=== PATIENT | male | born 1960 | race Caucasian/White ===

== ENCOUNTER 2016-10-15 09:15 | Emergency (ER) | payer BC ==
[~2016-10-15] VITALS: Ht 180.3 cm; Wt 119.4 kg
[2016-10-15 09:22] VITALS: BP 145/85; PULSE 59; RESP 18; TEMP 97.5; O2SAT 100
[2016-10-15 09:52] VITALS: O2SAT 99
[2016-10-15 09:56] VITALS: BP 152/83; PULSE 60; RESP 18; O2SAT 99
[2016-10-15] MEDS ORDERED: PANTOPRAZOLE SODIUM 40 MG VIAL IVP ONE (10:00)
[2016-10-15] MEDS ORDERED: SODIUM CHLORIDE 0.9% FLUSH 10 ML FLUSH IVF PRN (10:00)
[2016-10-15] MEDS ORDERED: ALFU10TA2 PO (10:07)
[2016-10-15] MEDS ORDERED: LISI40TA PO (10:07)
[2016-10-15] MEDS ORDERED: TRAM50TA PO (10:07)
[2016-10-15] MEDS ORDERED: FINA5TAB2 PO (10:07)
[2016-10-15] MEDS ORDERED: GABA600T PO (10:07)
[2016-10-15] MEDS ORDERED: DIAZ5TAB PO (10:07)
[2016-10-15] MEDS ORDERED: DULO1CAP3 PO (10:07)
[2016-10-15] MEDS ORDERED: METO100T PO (10:07)
--- NOTE | 2016-10-15 10:12 | PD ---
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 He states he has had constipation because he has chronic back pain and has been on tramadol and has a restraining a few days ago. He states that he also feels some abdominal bloating, 8 out of 10 abdominal pains in the lower abdomen. He does not know any exacerbating or alleviating factors. He denies any diarrhea, nausea, vomiting, fevers, or any other symptoms. He denies any previous history of GI bleeding. He denies any foreign body. Modifying Factors: None Associated Signs & Symptoms: Red blood in the stools Risk Factors: None PFSH Past Medical History Anxiety: Yes Depression: Yes Cardiovascular Problems: Yes (HTN) Diminished Hearing: No Hypertension: Yes Tetanus Vaccination: < 5 Years Influenza Vaccination: Yes Past Surgical History Other Surgery: Yes (ujf obstruction) Social History Alcohol Use: Yes (socially) Tobacco Use: No (former) Substance Use: No Allergies-Medications (Allergen,Severity, Reaction): Coded Allergies: No Known Allergies (Unverified , 10/15/16) Reported Meds & Prescriptions Reported Meds & Active Scripts Active Reported Tramadol (Tramadol HCl) 50 Mg Tab 50 Mg PO Q4H PRN Diazepam 5 Mg Tab 5 Mg PO TID PRN Alfuzosin ER 24 HR 10 Mg Tab 10 Mg PO HS Finasteride 5 Mg Tab 5 Mg PO HS Do not crush. Lisinopril 40 Mg Tab 40 Mg PO DAILY Duloxetine DR (Duloxetine HCl) 60 Mg Capdr 60 Mg PO DAILY Gabapentin 600 Mg Tab 600 Mg PO TID Metoprolol Tartrate 100 Mg Tab 100 Mg PO HS Review of Systems Except as stated in HPI: all other systems reviewed are Neg Physical Exam Narrative GENERAL: Well-developed elderly white male patient currently not in acute distress. Awake and oriented 3. SKIN: Focused skin assessment warm/dry. HEAD: Atraumatic. Normocephalic. EYES: Pupils equal and round. No scleral icterus. No injection or drainage. ENT: No nasal bleeding or discharge. Mucous membranes pink and moist. NECK: Trachea midline. No JVD. CARDIOVASCULAR: Regular rate and rhythm. No murmur appreciated. RESPIRATORY: No accessory muscle use. Clear to auscultation. Breath sounds equal bilaterally. GASTROINTESTINAL: Abdomen soft, mild lower abdominal diffuse tenderness without guarding or rebound, mildly distended. Hepatic and splenic margins not palpable. RECTAL EXAM: No masses or tenderness, stool is reddish and Hemoccult-positive. MUSCULOSKELETAL: No obvious deformities. No clubbing. No cyanosis. No edema. NEUROLOGICAL: Awake and alert. No obvious cranial nerve deficits. Motor grossly within normal limits. Normal speech. PSYCHIATRIC: Appropriate mood and affect; insight and judgment normal. Data Data Last Documented VS Vital Signs Date Time Temp Pulse Resp B/P Pulse Ox O2 Delivery O2 Flow Rate FiO2 10/15/16 10:52 57 18 169/83 98 Room Air 10/15/16 09:22 97.5 Orders Complete Blood Count With Diff (10/15/16 09:47) Comprehensive Metabolic Panel (10/15/16 09:47) Prothrombin Time / Inr (Pt) (10/15/16 09:47) Act Partial Throm Time (Ptt) (10/15/16 09:47) Type And Screen (10/15/16 09:47) Abdomen, Flat & Upright (10/15/16 09:47) Ecg Monitoring (10/15/16 09:47) Iv Access Insert/Monitor (10/15/16 09:47) Oximetry (10/15/16 09:47) Pantoprazole Inj (Protonix Inj) (10/15/16 10:00) Sodium Chloride 0.9% Flush (Ns Flush) (10/15/16 10:00) Labs Laboratory Tests Test 10/15/16 09:45 White Blood Count 8.7 TH/MM3 Red Blood Count 4.23 MIL/MM3 Hemoglobin 13.1 GM/DL Hematocrit 38.2 % Mean Corpuscular Volume 90.3 FL Mean Corpuscular Hemoglobin 31.0 PG Mean Corpuscular Hemoglobin 34.3 % Concent Red Cell Distribution Width 13.1 % Platelet Count 139 TH/MM3 Mean Platelet Volume 7.4 FL Neutrophils (%) (Auto) 83.2 % Lymphocytes (%) (Auto) 7.5 % Monocytes (%) (Auto) 8.9 % Eosinophils (%) (Auto) 0.2 % Basophils (%) (Auto) 0.2 % Neutrophils # (Auto) 7.2 TH/MM3 Lymphocytes # (Auto) 0.7 TH/MM3 Monocytes # (Auto) 0.8 TH/MM3 Eosinophils # (Auto) 0.0 TH/MM3 Basophils # (Auto) 0.0 TH/MM3 CBC Comment DIFF FINAL Differential Comment Prothrombin Time 10.6 SEC Prothromb Time International 1.0 RATIO Ratio Activated Partial 32.3 SEC Thromboplast Time Sodium Level 143 MEQ/L Potassium Level 4.0 MEQ/L Chloride Level 107 MEQ/L Carbon Dioxide Level 25.3 MEQ/L Anion Gap 11 MEQ/L Blood Urea Nitrogen 17 MG/DL Creatinine 1.10 MG/DL Estimat Glomerular Filtration 69 ML/MIN Rate Random Glucose 144 MG/DL Calcium Level 8.6 MG/DL Total Bilirubin 0.3 MG/DL Aspartate Amino Transf 25 U/L (AST/SGOT) Alanine Aminotransferase 29 U/L (ALT/SGPT) Alkaline Phosphatase 94 U/L Total Protein 7.1 GM/DL Albumin 3.5 GM/DL MDM Medical Decision Making Medical Screen Exam Complete: Yes Emergency Medical Condition: Yes Medical Record Reviewed: Yes Interpretation(s) Laboratory Tests Test 10/15/16 09:45 Red Blood Count 4.23 MIL/MM3 (4.50-5.90) Hematocrit 38.2 % (39.0-51.0) Platelet Count 139 TH/MM3 (150-450) Neutrophils (%) (Auto) 83.2 % (16.0-70.0) Lymphocytes (%) (Auto) 7.5 % (9.0-44.0) Monocytes (%) (Auto) 8.9 % (0.0-8.0) Lymphocytes # (Auto) 0.7 TH/MM3 (1.0-4.8) Activated Partial 32.3 SEC Thromboplast Time (24.3-30.1) Estimat Glomerular Filtration 69 ML/MIN (>89) Rate Random Glucose 144 MG/DL (74-106) Last 24 hours Impressions Abdomen X-Ray 10/15/16 0983 Signed Impressions: Service Date/Time: October 10:04 - CONCLUSION: No acute abdominal abnormality is identified. Raimundo Seymour MD Differential Diagnosis Red blood in the stoolsGI bleeding versus hemorrhoidal bleeding versus anal tear versus colitis Narrative Course Patient was given Protonix IV in the ER. Lab work did not show significant anemia. Vital signs are stable in the ER. X-ray did not show any signs of obstruction or foreign bodies. A rectal exam reveals red blood within the rectum, I do not see obvious hemorrhoids. He does have a small skin tear to the posterior part at the 6 o'clock position on the anus although there is blood about this area. At this point, the case was discussed with GI Dr. Giordano who agrees to see the patient in his clinic today or tomorrow for further evaluation of this issue, patient may need a GI scope for further evaluation. Patient needs to return to the ER if bleeding gets worse, he is having more pain, or other new symptoms occur. The plan was discussed the patient and he states understanding. HemaPrompt Point of Care Internal Pos. & Neg. Controls: Passed Fecal Specimen Occult Blood: Positive Diagnosis Primary Impression: Rectal bleeding Referrals: Rosanne Spencer MD Med/Other Pt SpecificInfo: Prescription(s) given Scripts Pantoprazole (Protonix)40 Mg Tab40 Mg PO DAILY #30 TAB Ref 0 Prov:Vitor Lockwood MD 10/15/16 Disposition: 01 DISCHARGE HOME Condition: Stable Vitor Lockwood MD Oct 15, 2016 10:12
[2016-10-15 10:14] LABS: AUTOMATED NEUTROPHIL # 7.2 TH/MM3 (1.8-7.7); BASOPHIL % 0.2 % (0.0-2.0); EOSINOPHIL % 0.2 % (0.0-4.0); HEMATOCRIT 38.2 % (39.0-51.0); HEMO FLAGS DIFF FINAL; LYMPH % 7.5 % (9.0-44.0); LYMPHOCYTE # 0.7 TH/MM3 (1.0-4.8); MEAN CELL VOLUME 90.3 FL (80.0-100.0); MEAN CORPUSCULAR HGB CONC 34.3 % (32.0-36.0); MONO % 8.9 % (0.0-8.0); NEUT % 83.2 % (16.0-70.0); PLATELET COUNT 139 TH/MM3 (150-450); RED BLOOD COUNT 4.23 MIL/MM3 (4.50-5.90); RED CELL DISTRIBUTION WIDTH 13.1 % (11.6-17.2); WHITE BLOOD COUNT 8.7 TH/MM3 (4.0-11.0)
[2016-10-15 10:22] LABS: CHLORIDE 107 MEQ/L (98-107); SODIUM (NA) 143 MEQ/L (136-145)
[2016-10-15 10:25] LABS: ANION GAP 11 MEQ/L (5-15); APTT (PATIENT) 32.3 SEC (24.3-30.1); BICARBONATE 25.3 MEQ/L (21.0-32.0); BLOOD UREA NITROGEN 17 MG/DL (7-18); PROTHROMBIN TIME - PATIENT 10.6 SEC (9.8-11.6)
[2016-10-15 10:28] LABS: ALT (GPT) 29 U/L (12-78); AST (GOT) 25 U/L (15-37); GLOMERULAR FILTRATION RATE 69 ML/MIN (>89)
[2016-10-15 10:29] LABS: TOTAL BILIRUBIN ADULT 0.3 MG/DL (0.2-1.0)
[2016-10-15 10:43] LABS: ALKALINE PHOSPHATASE 94 U/L (45-117)
--- NOTE | 2016-10-15 10:44 | RADHPO ---
EXAM DATE/TIME: 10/15/2016 10:04 [facility] COMPARISON: No previous studies available for comparison. INDICATIONS : Low abdominal pain. Constipation x 3 days, bloody diarrhea started this am. MEDICAL HISTORY : Hypertension. SURGICAL HISTORY : None. ENCOUNTER: Initial ACUITY: 3 days PAIN SCORE: 8/10 LOCATION: lower abdomen FINDINGS: Supine and upright views of the abdomen demonstrates air within small and large bowel and a nonobstru ctive pattern. There is mild distended small bowel in the left midabdomen. The upright image demonstr ates no free intraperitoneal air or significant air-fluid level. No concerning calcifications are see n. There are degenerative changes throughout the lumbar spine and there has been posterior spinal fix ation with bilateral pedicular screws at L4-S1. The visualized lung bases are clear. CONCLUSION: No acute abdominal abnormality is identified. Raimundo Seymour MD on October 15, 2016 at 10:42 Board Certified Radiologist. This report was verified electronically.
[2016-10-15 10:52] VITALS: BP 169/83; PULSE 57; RESP 18; O2SAT 98
[2016-10-15] MEDS ORDERED: PROT40TA PO (11:05)
== END 2016-10-15 11:35 | disposition home or self-care (01) ==
LOC: PHED 09:15
DX: K62.5 Hemorrhage of anus and rectum (principal)
CPT/HCPCS: 74020; 80053; 85025; 85610; 85730; 86850; 86900; 86901; 96374; C9113

== ENCOUNTER 2016-10-16 14:47 | Inpatient (IN) | payer BC ==
[~2016-10-16] VITALS: Ht 180.3 cm; Wt 113.0 kg
[~2016-10-16 14:47] MED LIST: ALFU10TA2 PO; DIAZ5TAB PO; DULO1CAP3 PO; FINA5TAB2 PO; GABA600T PO; LISI40TA PO; METO100T PO; PROT40TA PO; TRAM50TA PO
[2016-10-16 14:49] VITALS: BP 166/85; PULSE 70; RESP 24; TEMP 97.6; O2SAT 100
--- NOTE | 2016-10-16 14:54 | PD ---
Physical Exam Date Seen by Provider: Oct 16, 2016 Time Seen by Provider: 14:53 Narrative 56 year old male presents to the emergency department for evaluation of bright red rectal bleeding for 2 days. He states he was seen at [facility] and was referred to outpatient gastroenterology. He follow up there and was referred to the emergency department. He reports dizziness and abdominal pain as well. Vital signs reviewed. Patient awaiting bed placement. Data Data Last Documented VS Vital Signs Date Time Temp Pulse Resp B/P Pulse Ox O2 Delivery O2 Flow Rate FiO2 10/16/16 14:49 97.6 70 24 166/85 100 Room Air [facility] Supervised Visit with TYE: Shireen Contreras Oct 16, 2016 14:54
[2016-10-16] MEDS ORDERED: SODIUM CHLOR 0.9% 1000 ML INJ 1,000 ML IV SCH (16:40)
--- NOTE | 2016-10-16 16:42 | PD ---
HPI Chief Complaint: GI Complaint Time Seen by Provider: 16:42 Travel History International Travel<30 days: No Contact w/Intl Traveler<30days: No Traveled to known affect area: No History of Present Illness HPI 56-year-old male with a history of hypertension, BPH, anxiety and depression presents to the emergency department for evaluation of rectal bleeding for 2 days. The patient states that he was suffering from constipation for 4 days and had not had any bowel movements until last night. States that when he woke up yesterday morning he felt as though he needed to have a bowel movement so he sat on the toilet but passed only bright red blood. States that he had multiple episodes of passing bright red blood approximately one to 2 cups at a time. States that last night he did finally pass brown stool and did notice bright red blood on the toilet paper afterwards. States that this morning he had a few more bowel movements that were brown without blood. But throughout the day today he has still had multiple episodes of passing bright red blood per rectum without any stool. He also complains of lower abdominal cramping intermittently since yesterday. States that today he is feeling weak and lightheaded. States that he saw the wholesale account manager Dr. Spencer today and was told to come to the ED. Does not have a PCP. No other complaints. PFSH Past Medical History Anxiety: Yes Depression: Yes Cardiovascular Problems: Yes (HTN) Diminished Hearing: No Hypertension: Yes Past Surgical History Other Surgery: Yes (ujf obstruction) Social History Alcohol Use: Yes (socially) Tobacco Use: No (former) Substance Use: No Allergies-Medications (Allergen,Severity, Reaction): Coded Allergies: No Known Allergies (Unverified , 10/16/16) Reported Meds & Prescriptions Reported Meds & Active Scripts Active Protonix (Pantoprazole Sodium) 40 Mg Tab 40 Mg PO DAILY Reported Tramadol (Tramadol HCl) 50 Mg Tab 50 Mg PO Q4H PRN Diazepam 5 Mg Tab 5 Mg PO TID PRN Alfuzosin ER 24 HR 10 Mg Tab 10 Mg PO HS Finasteride 5 Mg Tab 5 Mg PO HS Do not crush. Lisinopril 40 Mg Tab 40 Mg PO DAILY Duloxetine DR (Duloxetine HCl) 60 Mg Capdr 60 Mg PO DAILY Gabapentin 600 Mg Tab 600 Mg PO TID Metoprolol Tartrate 100 Mg Tab 100 Mg PO HS Review of Systems Except as stated in HPI: all other systems reviewed are Neg Physical Exam Narrative GENERAL: Well-nourished and well-developed pleasant male patient in no acute distress who is nontoxic appearing. SKIN: Warm and dry. HEAD: Normocephalic and atraumatic. EYES: No injection, drainage, or hyphema noted. PERRLA. EOMI. ENT: No nasal drainage noted. Oropharynx is clear. NECK: Supple and the trachea is midline. CARDIOVASCULAR: Regular rate and rhythm. RESPIRATORY: Breath sounds are equal bilaterally with no accessory muscle use, wheezing, rhonchi, or crackles. GASTROINTESTINAL: Tenderness to palpation of left lower quadrant, mid lower and right lower abdomen. No rebound tenderness or guarding. Abdomen is soft and nondistended. RECTAL EXAM: No masses or tenderness. No stool in the rectal vault. Performed in the presence of Nelida LANGSTON. MUSCULOSKELETAL: No obvious deformities, swelling, cyanosis, or ecchymosis is present throughout the upper and lower extremities. Patient has full range of motion without any signs of neurovascular compromise. NEUROLOGICAL: Awake, alert, and oriented. Normal speech and gait. Cranial nerves are grossly intact. Data Data Last Documented VS Vital Signs Date Time Temp Pulse Resp B/P Pulse Ox O2 Delivery O2 Flow Rate FiO2 10/16/16 17:07 72 18 170/79 10/16/16 17:02 99 Room Air 10/16/16 14:49 97.6 Orders Complete Blood Count With Diff (10/16/16 16:40) Comprehensive Metabolic Panel (10/16/16 16:40) Lipase (10/16/16 16:40) Prothrombin Time / Inr (Pt) (10/16/16 16:40) Act Partial Throm Time (Ptt) (10/16/16 16:40) Ecg Monitoring (10/16/16 16:40) Iv Access Insert/Monitor (10/16/16 16:40) Orthostatic Vital Signs (10/16/16 16:40) Oximetry (10/16/16 16:40) Ondansetron Inj (Zofran Inj) (10/16/16 16:45) Sodium Chlor 0.9% 1000 Ml Inj (Ns 1000 M (10/16/16 16:40) Sodium Chloride 0.9% Flush (Ns Flush) (10/16/16 16:45) Pantoprazole Inj (Protonix Inj) (10/16/16 16:45) Pantoprazole Inj (Protonix Inj) (10/16/16 16:45) Morphine Inj (Morphine Inj) (10/16/16 16:45) Ct Abd/Pel W Iv Contrast(Rout) (10/16/16 16:40) Iohexol 350 Inj (Omnipaque 350 Inj) (10/16/16 18:11) Ciprofloxacin 400 Mg Premix (Cipro 400 M (10/16/16 19:30) Metronidazole 500 Mg Inj (Flagyl 500 Mg (10/16/16 19:30) Consult Gastroenterology (10/16/16 ) Admit Order (Ed Use Only) (10/16/16 19:28) Labs Laboratory Tests Test 10/16/16 17:15 White Blood Count 7.6 TH/MM3 Red Blood Count 3.98 MIL/MM3 Hemoglobin 12.3 GM/DL Hematocrit 36.5 % Mean Corpuscular Volume 91.5 FL Mean Corpuscular Hemoglobin 31.0 PG Mean Corpuscular Hemoglobin 33.8 % Concent Red Cell Distribution Width 13.7 % Platelet Count 127 TH/MM3 Mean Platelet Volume 7.9 FL Neutrophils (%) (Auto) 73.1 % Lymphocytes (%) (Auto) 17.5 % Monocytes (%) (Auto) 8.8 % Eosinophils (%) (Auto) 0.5 % Basophils (%) (Auto) 0.1 % Neutrophils # (Auto) 5.5 TH/MM3 Lymphocytes # (Auto) 1.3 TH/MM3 Monocytes # (Auto) 0.7 TH/MM3 Eosinophils # (Auto) 0.0 TH/MM3 Basophils # (Auto) 0.0 TH/MM3 CBC Comment DIFF FINAL Differential Comment Prothrombin Time 11.0 SEC Prothromb Time International 1.0 RATIO Ratio Activated Partial 32.4 SEC Thromboplast Time Sodium Level 141 MEQ/L Potassium Level 4.0 MEQ/L Chloride Level 105 MEQ/L Carbon Dioxide Level 28.5 MEQ/L Anion Gap 8 MEQ/L Blood Urea Nitrogen 13 MG/DL Creatinine 1.09 MG/DL Estimat Glomerular Filtration 70 ML/MIN Rate Random Glucose 104 MG/DL Calcium Level 8.3 MG/DL Total Bilirubin 0.5 MG/DL Aspartate Amino Transf 15 U/L (AST/SGOT) Alanine Aminotransferase 26 U/L (ALT/SGPT) Alkaline Phosphatase 69 U/L Total Protein 6.8 GM/DL Albumin 3.4 GM/DL Lipase 92 U/L [facility] Medical Decision Making Medical Screen Exam Complete: Yes Emergency Medical Condition: Yes Differential Diagnosis GI bleed versus symptomatic anemia versus dehydration versus loculated abnormality versus constipation Narrative Course 56-year-old male presents to the emergency department for evaluation of rectal bleeding for 2 days with lightheadedness, weakness and abdominal pain. Patient is afebrile, vital signs are stable. He does have lower abdominal tenderness to palpation but no peritoneal signs. Rectal examination is performed however there is no stool in the rectal vault. I did review the EMR which shows he was seen here yesterday and had a positive stool guaiac and was discharged to follow -up with a wholesale account manager as an outpatient. He did see Dr. Spencer today in office, there is documentation that was sent with the patient from the visit that shows he is requesting patient have repeat labs, EGD and colonoscopy and a CT of the abdomen and pelvis. Patient is administered IV fluids, pain medication, Protonix bolus and drip. CBC shows anemia with a hemoglobin of 12.3, hematocrit 36.5. This is decreased from yesterday when his hemoglobin was 13.1 and hematocrit 38.2. CMP is unremarkable. Coags are unremarkable. CT of the abdomen and pelvis shows questionable distal colonic wall thickening which may reflect colitis. Small period splenic fluid collection of undetermined origin and significance. Stool guaiac tested from stool sample is positive. Labs show a slight decrease in hemoglobin and imaging shows possible colitis. Patient is administered Cipro and Flagyl IV and will be admitted to medicine service with gastroenterology consultation. I discussed the case with my attending physician Dr. Rendon who is aware of the patients history, physical examination findings, and treatment plan. HemaPrompt Point of Care Internal Pos. & Neg. Controls: Passed Fecal Specimen Occult Blood: Positive Physician Communication Physician Communication I spoke with Dr. Choudhury [facility] who agrees to admit the patient to her service. Diagnosis Primary Impression: GI bleed Qualified Code: K92.2 - Gastrointestinal hemorrhage, unspecified gastrointestinal hemorrhage type Additional Impression: Colitis Admitting Information Admitting Physician Requests: Observation Alejandra Cali Oct 16, 2016 16:42
[2016-10-16] MEDS ORDERED: SODIUM CHLORIDE 0.9% FLUSH 10 ML FLUSH IVF PRN (16:45)
[2016-10-16] MEDS ORDERED: MORPHINE SULFATE 4 MG/ML INJ IV PUSH ONE (16:45)
[2016-10-16] MEDS ORDERED: ONDANSETRON HCL 4 MG/2 ML VIAL IVP ONE (16:45)
[2016-10-16] MEDS ORDERED: PANTOPRAZOLE INJ 80 MG in SODIUM CHLORIDE 0.9% INJ 35 ML IV ONE (16:45)
[2016-10-16 17:02] VITALS: BP 153/104; RESP 18; O2SAT 99
[2016-10-16 17:07] VITALS: BP 170/79; RESP 18
[2016-10-16 17:28] LABS: AUTOMATED NEUTROPHIL # 5.5 TH/MM3 (1.8-7.7); BASOPHIL % 0.1 % (0.0-2.0); EOSINOPHIL % 0.5 % (0.0-4.0); HEMATOCRIT 36.5 % (39.0-51.0); HEMO FLAGS DIFF FINAL; LYMPH % 17.5 % (9.0-44.0); LYMPHOCYTE # 1.3 TH/MM3 (1.0-4.8); MEAN CELL VOLUME 91.5 FL (80.0-100.0); MEAN CORPUSCULAR HGB CONC 33.8 % (32.0-36.0); MONO % 8.8 % (0.0-8.0); NEUT % 73.1 % (16.0-70.0); PLATELET COUNT 127 TH/MM3 (150-450); RED BLOOD COUNT 3.98 MIL/MM3 (4.50-5.90); RED CELL DISTRIBUTION WIDTH 13.7 % (11.6-17.2); WHITE BLOOD COUNT 7.6 TH/MM3 (4.0-11.0)
[2016-10-16 17:39] LABS: APTT (PATIENT) 32.4 SEC (24.3-30.1)
[2016-10-16] MEDS: PANTOPRAZOLE INJ 80 MG in SODIUM CHLORIDE 0.9% INJ 100 ML IV SCH (17:44)
[2016-10-16 17:51] LABS: ALT (GPT) 26 U/L (12-78); ANION GAP 8 MEQ/L (5-15); AST (GOT) 15 U/L (15-37); BICARBONATE 28.5 MEQ/L (21.0-32.0); BLOOD UREA NITROGEN 13 MG/DL (7-18); CHLORIDE 105 MEQ/L (98-107); GLOMERULAR FILTRATION RATE 70 ML/MIN (>89); SODIUM (NA) 141 MEQ/L (136-145)
[2016-10-16 17:53] LABS: ALKALINE PHOSPHATASE 69 U/L (45-117); TOTAL BILIRUBIN ADULT 0.5 MG/DL (0.2-1.0)
[2016-10-16] MEDS ORDERED: IOHEXOL 350 MG/ML 10 ML VIAL (for RAD DIAG) IV ONE (18:11)
--- NOTE | 2016-10-16 19:15 | RADRPT ---
EXAM DATE/TIME: 10/16/2016 18:02 [facility] COMPARISON: No previous studies available for comparison. INDICATIONS : Rectal bleeding with hypogastric abdominal pain for 2 days. IV CONTRAST: 92 cc Omnipaque 350 (iohexol) IV ORAL CONTRAST: No oral contrast ingested. RADIATION DOSE: 16.98 CTDIvol (mGy) MEDICAL HISTORY : Hypertension. SURGICAL HISTORY : Fusion, lumbar. ENCOUNTER: Initial ACUITY: 2 days PAIN SCALE: 6/10 LOCATION: Hypogastric abdomen/pelvis TECHNIQUE: Volumetric scanning of the abdomen and pelvis was performed. Using automated exposure control and ad justment of the mA and/or kV according to patient size, radiation dose was kept as low as reasonably achievable to obtain optimal diagnostic quality images. FINDINGS: LOWER LUNGS: The visualized lower lungs are clear. LIVER: Homogeneous density without lesion. There is no dilation of the biliary tree. No calcified gallston es. SPLEEN: There is a crescentic low density collection in the posterior subdiaphragmatic region adjacent to the spleen. The significance of this is undetermined. There is no evidence of splenic mass. PANCREAS: Within normal limits. KIDNEYS: Normal in size and shape. There is no mass, stone or hydronephrosis. ADRENAL GLANDS: Within normal limits. VASCULAR: There is no aortic aneurysm. BOWEL/MESENTERY: I question some distal colonic wall thickening diffusely in the sigmoid region. There is no evidence of obstruction. No extraluminal gas or fluid is appreciated. ABDOMINAL WALL: Within normal limits. RETROPERITONEUM: There is no lymphadenopathy. BLADDER: No wall thickening or mass. REPRODUCTIVE: Within normal limits. INGUINAL: There is no lymphadenopathy or hernia. MUSCULOSKELETAL: Within normal limits for patient age. CONCLUSION: Question distal colonic wall thickening which may reflect colitis. Small perisplenic fluid collection of undetermined origin and significance. Raimundo Ghotra MD on October 16, 2016 at 19:07 Board Certified Radiologist. This report was verified electronically.
[2016-10-16] MEDS ORDERED: CIPROFLOXACIN 400 MG PREMIX 200 ML IV ONE (19:30)
[2016-10-16] MEDS ORDERED: metroNIDAZOLE 500 MG INJ 100 ML IV ONE (19:30)
[2016-10-16 19:37] VITALS: BP 164/95; PULSE 62; RESP 18; O2SAT 96
--- NOTE | 2016-10-16 19:43 | HHI.HP ---
[facility] No Primary Care Physician Admission Diagnosis GI Bleed, Colitis Diagnoses: (1) Colitis Diagnosis: Principal (2) GI bleed Diagnosis: Principal (3) Dehydration Diagnosis: Principal (4) HTN (hypertension) Diagnosis: Principal Travel History International Travel<30 Days: No Contact w/Intl Traveler <30 Da: No Traveled to Known Affected Are: No History of Present Illness This is a 56-year-old male with a PMH of Anxiety, Depression, BPH and HTN who presented to the ER with complaints of rectal bleeding x2 days. Denies nausea, vomiting or diarrhea. Reports occasional cramping abdominal pain. Seen in ER on 10/15/16 for similar symptoms, labs essentially unremarkable, Abd X-ray negative, Dr. Spencer contacted by ER physician, recommended follow up as outpatient in office for further eval. Today w/ multiple episodes of BRBPR, seen in office by Dr. Spencer and referred to ER for CT and plan for EGD/ Colonoscopy. On arrival, BP 166/85, HR 70, O2 sat 100% on RA, Afebrile. Hgb 12.3, previously 13.1 on 10/15/16. Platelets 127, previously 139 on 10/15/16. Chemistry essentially unremarkable except for GFR 70. INR 1.0. CT Abdomen/ Pelvis w/ question distal colonic wall thickening which may reflect colitis, small perisplenic fluid of undetermined significance. S/p Cipro/Flagyl in ER. Started on Protonix gtt Review of Systems Except as stated in HPI: all other systems reviewed are Neg ROS: 14 point review of systems otherwise negative. Past Family Social History Past Medical History PMH: Anxiety, Depression, BPH and HTN Past Surgical History PAST SURGICAL HISTORY: UVJ Stent Allergies: Coded Allergies: No Known Allergies (Unverified , 10/16/16) Family History PAST FAMILY HISTORY: Reviewed. No h/o DM or CAD Social History PAST SOCIAL HISTORY: Occasional alcohol. Negative for tobacco or drugs. Physical Exam Vital Signs Vital Signs Date Time Temp Pulse Resp B/P Pulse Ox O2 Delivery O2 Flow Rate FiO2 10/16/16 19:37 62 18 164/95 96 Room Air 10/16/16 17:07 72 18 170/79 10/16/16 17:02 18 10/16/16 17:02 99 Room Air 10/16/16 17:02 67 18 153/104 10/16/16 14:49 97.6 70 24 166/85 100 Room Air Physical Exam PE: GENERAL: Middle-aged white male in no acute distress. HEENT: PERRLA, EOMI. No scleral icterus or conjunctival pallor. No lid lag or facial droop. CARDIOVASCULAR: Regular rate and rhythm. No obvious murmurs to auscultation. No chest tenderness to palpation. RESPIRATORY: No obvious rhonchi or wheezing. Clear to auscultation. Breath sounds equal bilaterally. GASTROINTESTINAL: Abdomen soft, mild generalized tenderness to palpation, nondistended. BS normal. MUSCULOSKELETAL: Extremities without clubbing, cyanosis, or edema. No obvious deformities. NEUROLOGICAL: Awake, alert and oriented x4. No focal neurologic deficits. Moving both upper and lower extremities spontaneously. Laboratory Laboratory Tests Test 10/16/16 17:15 White Blood Count 7.6 Red Blood Count 3.98 Hemoglobin 12.3 Hematocrit 36.5 Mean Corpuscular Volume 91.5 Mean Corpuscular Hemoglobin 31.0 Mean Corpuscular Hemoglobin 33.8 Concent Red Cell Distribution Width 13.7 Platelet Count 127 Mean Platelet Volume 7.9 Neutrophils (%) (Auto) 73.1 Lymphocytes (%) (Auto) 17.5 Monocytes (%) (Auto) 8.8 Eosinophils (%) (Auto) 0.5 Basophils (%) (Auto) 0.1 Neutrophils # (Auto) 5.5 Lymphocytes # (Auto) 1.3 Monocytes # (Auto) 0.7 Eosinophils # (Auto) 0.0 Basophils # (Auto) 0.0 CBC Comment DIFF FINAL Differential Comment Prothrombin Time 11.0 Prothromb Time International 1.0 Ratio Activated Partial 32.4 Thromboplast Time Sodium Level 141 Potassium Level 4.0 Chloride Level 105 Carbon Dioxide Level 28.5 Anion Gap 8 Blood Urea Nitrogen 13 Creatinine 1.09 Estimat Glomerular Filtration 70 Rate Random Glucose 104 Calcium Level 8.3 Total Bilirubin 0.5 Aspartate Amino Transf 15 (AST/SGOT) Alanine Aminotransferase 26 (ALT/SGPT) Alkaline Phosphatase 69 Total Protein 6.8 Albumin 3.4 Lipase 92 Result Diagram: 10/16/16 1715 10/16/16 171 Assessment and Plan Problem List: (1) GI bleed ICD Code: K92.2 Status: Acute (2) Colitis ICD Code: K52.9 Status: Acute (3) Dehydration ICD Code: E86.0 Status: Acute (4) HTN (hypertension) ICD Code: I10 Status: Acute Assessment and Plan A/P: 1. GI Bleed: Lower GI Bleed, +rectal bleeding x2 days, seen in ER on 10/15/16 for similar, multiple episodes of BRBPR today, seen in office by Dr. Spencer and referred to ER for CT w/ plan for EGD/Colonoscopy. CT Abd/Pelvis w/ colitis , images reviewed by me. Dr. Spencer consulted. Started on Protonix gtt 2. Colitis: CT Abd/Pelvis w/ question distal colonic wall thickening which may reflect colitis, small. Splenic fluid collection undetermined significance , images reviewed by me. S/p Cipro/Flagyl in ER. Continue IV Abx, IVF for hydration. 3. Dehydration: GFR 70, IVF for hydration, repeat labs in am. 4. HTN: BP 150-160's, likely compounded by abdominal discomfort, resume home medications, monitor BP. 5. DVT Prophylaxis: SCD/Teds. 6. Social work for d/c planning as needed. 7. Case discussed w/ ER physician at length. Physician Certification 2 Midnight Certification Type: Admission for Inpatient Services Order for Inpatient Services The services are ordered in accordance with Medicare regulations or non- Medicare payer requirements, as applicable. In the case of services not specified as inpatient-only, they are appropriately provided as inpatient services in accordance with the 2-midnight benchmark. Estimated LOS (days): 2 days is the estimated time the patient will need to remain in the hospital, assuming treatment plan goals are met and no additional complications. Post-Hospital Plan: Not yet determined Problem Qualifiers (1) GI bleed: Qualified Code: K92.2 - Gastrointestinal hemorrhage, unspecified gastrointestinal hemorrhage type Susan Choudhury MD Oct 16, 2016 19:43
[2016-10-16] MEDS ORDERED: SODIUM CHLORIDE 0.9% FLUSH 10 ML FLUSH IV FLUSH PRN (19:45)
[2016-10-16] MEDS ORDERED: ACETAMINOPHEN 325 MG TAB PO PRN (19:45)
[2016-10-16] MEDS ORDERED: BISACODYL 10 MG SUPP RECTAL PRN (19:45)
[2016-10-16] MEDS ORDERED: ONDANSETRON HCL 4 MG/2 ML VIAL IVP PRN (19:45)
[2016-10-16] MEDS: SODIUM CHLOR 0.9% 1000 ML INJ 1,000 ML IV SCH (20:10)
[2016-10-16] MEDS: MORPHINE SULFATE 4 MG/ML INJ IV PRN (20:12)
[2016-10-16] MEDS: SODIUM CHLORIDE 0.9% FLUSH 10 ML FLUSH IV FLUSH SCH (21:00)
[2016-10-16 22:40] VITALS: BP 113/70; PULSE 78; RESP 20; TEMP 97.4; O2SAT 98
[2016-10-16] MEDS: METOPROLOL TARTRATE 100 MG TAB PO SCH (22:42)
[2016-10-16] MEDS: TAMSULOSIN HCL 0.4 MG CAP PO SCH (22:42)
[2016-10-16] MEDS: FINASTERIDE 5 MG TAB PO SCH (22:42)
[2016-10-17] MEDS: DIAZEPAM 5 MG TAB PO PRN ×3 (00:33→17:17)
[2016-10-17] MEDS: ACETAMINOPHEN/HYDROcodone 325 MG/5 MG TAB PO PRN ×5 (00:33→21:42)
[2016-10-17] MEDS: PANTOPRAZOLE INJ 80 MG in SODIUM CHLORIDE 0.9% INJ 100 ML IV SCH ×3 (03:06→21:43)
[2016-10-17] MEDS: metroNIDAZOLE 500 MG INJ 100 ML IV SCH ×3 (03:09→17:20)
[2016-10-17 04:29] VITALS: BP 105/55; PULSE 60; RESP 18; TEMP 97.7; O2SAT 96
[2016-10-17] MEDS: SODIUM CHLOR 0.9% 1000 ML INJ 1,000 ML IV SCH ×2 (05:46→15:06)
[2016-10-17] MEDS: CIPROFLOXACIN 400 MG PREMIX 200 ML IV SCH ×2 (05:56→17:17)
[2016-10-17 05:59] LABS: AUTOMATED NEUTROPHIL # 3.5 TH/MM3 (1.8-7.7); BASOPHIL % 0.4 % (0.0-2.0); EOSINOPHIL # 0.1 TH/MM3 (0-0.4); HEMO FLAGS DIFF FINAL; LYMPHOCYTE # 1.8 TH/MM3 (1.0-4.8); MEAN CELL VOLUME 91.2 FL (80.0-100.0); MEAN CORPUSCULAR HEMOGLOBIN 31.8 PG (27.0-34.0); MEAN CORPUSCULAR HGB CONC 34.9 % (32.0-36.0); MONO % 10.5 % (0.0-8.0); NEUT % 58.1 % (16.0-70.0); PLATELET COUNT 110 TH/MM3 (150-450); RED CELL DISTRIBUTION WIDTH 14.1 % (11.6-17.2)
[2016-10-17 06:38] LABS: ALKALINE PHOSPHATASE 56 U/L (45-117); ALT (GPT) 19 U/L (12-78); ANION GAP 8 MEQ/L (5-15); AST (GOT) 13 U/L (15-37); BICARBONATE 25.1 MEQ/L (21.0-32.0); BLOOD UREA NITROGEN 12 MG/DL (7-18); CHLORIDE 108 MEQ/L (98-107); GLOMERULAR FILTRATION RATE 81 ML/MIN (>89); POTASSIUM 3.6 MEQ/L (3.5-5.1); SODIUM (NA) 141 MEQ/L (136-145); TOTAL BILIRUBIN ADULT 0.4 MG/DL (0.2-1.0)
[2016-10-17 08:00] VITALS: BP 112/67; PULSE 51; RESP 16; TEMP 97; O2SAT 98
[2016-10-17] MEDS: GABAPENTIN 300 MG CAP PO SCH ×3 (08:17→17:17)
[2016-10-17] MEDS: SODIUM CHLORIDE 0.9% FLUSH 10 ML FLUSH IV FLUSH SCH ×2 (08:17→21:00)
[2016-10-17] MEDS: DULoxetine HCl DR 60 MG CAP PO SCH (08:17)
--- NOTE | 2016-10-17 11:01 | PD.CONS ---
HPI History of Present Illness This is a 56-year-old male with a PMH of Anxiety, Depression, BPH and HTN who presented to the ER with complaints of rectal bleeding that started on Wednesday associated with severe stabbing constant lower abdomen pain. Patient was seen in ER on 10/15/16 for similar symptoms, labs essentially unremarkable, Abd X-ray negative at the time, Dr. Spencer contacted by ER physician, recommended follow up as outpatient in office for further eval. He was seen in our office by Dr. Spencer and referred to ER for CT and plan for EGD/Colonoscopy due to feeling dizzy and having multiple episodes of BRBPR. The bleeding fills the toilet, with mucus, he states he was having an episode approx. every 30 -45 minutes independent of BM. States he had few BMs but they are normal in color with out bleeding. Denies nausea, vomiting, diarrhea, fever, or chills. Denies previous history of this, denies recent abx, sick contact or travel. Aleksander family hx of IBD. Denies NSAIDs. He had a colonoscopy 7 years ago per patient and that was normal. The pain is much better today. He had a rectal bleed this morning. CT Abdomen/Pelvis w/ question distal colonic wall thickening which may reflect colitis, small perisplenic fluid of undetermined significance. Hgb 10.8, previously 13.1 on 10/15/16. S/p Cipro/Flagyl in ER. Started on Protonix gtt PFSH Past Medical History PMH: Anxiety, Depression, BPH and HTN Past Surgical History PAST SURGICAL HISTORY: UVJ Stent Coded Allergies: No Known Allergies (Unverified , 10/16/16) Medications Current Medications Medications (Trade) Dose Ordered Sig/Kiara Route Start Time Stop Time Status Last Admin Sodium Chloride 2 ml 2 ml UNSCH PRN IVF 10/16/16 16:45 Pantoprazole Sodium 80 mg/ Sodium Chloride 100 ml @ 10 mls/hr Q10H IV 10/16/16 16:45 10/17/16 03:06 Ciprofloxacin/ Dextrose 200 ml @ 200 mls/hr Q12H IV 10/17/16 07:00 10/17/16 05:56 Metronidazole 100 ml @ 100 mls/hr Q8H IV 10/17/16 03:00 10/17/16 03:09 (NS 1000 ml Inj) 1,000 ml @ 100 mls/hr Q10H IV 10/16/16 19:37 10/17/16 05:46 (NS Flush) 2 ml UNSCH PRN IV FLUSH 10/16/16 19:45 (NS Flush) 2 ml BID IV FLUSH 10/16/16 21:00 10/17/16 08:17 (Zofran Inj) 4 mg Q6H PRN IVP 10/16/16 19:45 (Dulcolax Supp) 10 mg DAILY PRN RECTAL 10/16/16 19:45 (Tylenol) 650 mg Q6H PRN PO 10/16/16 19:45 ([place] 5-325 Mg) 1 tab Q4H PRN PO 10/16/16 19:45 10/17/16 08:17 (Morphine Inj) 2 mg Q3H PRN IV 10/16/16 19:45 10/16/16 20:12 (Valium) 5 mg TID PRN PO 10/16/16 19:45 10/17/16 08:17 (Cymbalta Dr) 60 mg DAILY PO 10/17/16 09:00 10/17/16 08:17 (Proscar) 5 mg HS PO 10/16/16 21:00 10/16/16 22:42 (Neurontin) 600 mg TID PO 10/17/16 09:00 10/17/16 08:17 (Lopressor) 100 mg HS PO 10/16/16 21:00 10/16/16 22:42 (Flomax) 0.4 mg HS PO 10/16/16 21:00 10/16/16 22:42 Family History No family hx of colon cancer or IBD Social History PAST SOCIAL HISTORY: Occasional alcohol. Negative for tobacco or drugs. Review of Systems Constitutional: COMPLAINS OF: Fatigue, DENIES: Fever, Chills Endocrine: DENIES: Polyuria Eyes: DENIES: Double Vision Ears, nose, mouth, throat: DENIES: Hoarseness Respiratory: DENIES: Shortness of breath Cardiovascular: DENIES: Lower Extremity Edema Gastrointestinal: COMPLAINS OF: Abdominal pain, Bloody stools, DENIES: Black stools, Constipation, Diarrhea, Nausea, Vomiting, Difficulty Swallowing, Anorexia, Odynophagia, Swelling of Abdomen, Heartburn, Hematemesis Genitourinary: DENIES: Hematuria Musculoskeletal: COMPLAINS OF: Back pain Integumentary: DENIES: Jaundice Hematologic/lymphatic: DENIES: Bruising Immunologic/allergic: DENIES: Eczema Neurologic: DENIES: Abnormal gait Psychiatric: COMPLAINS OF: Anxiety GI Exam Vitals I&O Vital Signs Date Time Temp Pulse Resp B/P Pulse Ox O2 Delivery O2 Flow Rate FiO2 10/17/16 08:00 97.0 51 16 112/67 98 10/17/16 04:29 97.7 60 18 105/55 96 10/17/16 01:55 18 10/16/16 22:40 97.4 78 20 113/70 98 10/16/16 21:23 18 10/16/16 21:15 18 10/16/16 19:37 62 18 164/95 96 Room Air 10/16/16 17:07 72 18 170/79 10/16/16 17:02 18 10/16/16 17:02 99 Room Air 10/16/16 17:02 67 18 153/104 10/16/16 14:49 97.6 70 24 166/85 100 Room Air I/O 10/16/16 10/16/16 10/16/16 10/17/16 10/17/16 10/17/16 07:00 15:00 23:00 07:00 15:00 23:00 Intake Total 168 ml 380 ml 704 ml Balance 168 ml 380 ml 704 ml Intake Oral 380 ml IV Total 168 ml 704 ml # Voids 2 Imaging Last Impressions Abdomen/Pelvis CT 10/16/16 1640 Signed Impressions: Service Date/Time: Sunday, October 16, 2016 18:02 - CONCLUSION: Question distal colonic wall thickening which may reflect colitis. Small perisplenic fluid collection of undetermined origin and significance. Raimundo Ghotra MD Laboratory Test 10/16/16 10/17/16 17:15 05:38 White Blood Count 7.6 TH/MM3 6.0 TH/MM3 Red Blood Count 3.98 MIL/MM3 3.40 MIL/MM3 Hemoglobin 12.3 GM/DL 10.8 GM/DL Hematocrit 36.5 % 31.0 % Mean Corpuscular Volume 91.5 FL 91.2 FL Mean Corpuscular Hemoglobin 31.0 PG 31.8 PG Mean Corpuscular Hemoglobin 33.8 % 34.9 % Concent Red Cell Distribution Width 13.7 % 14.1 % Platelet Count 127 TH/MM3 110 TH/MM3 Mean Platelet Volume 7.9 FL 7.9 FL Neutrophils (%) (Auto) 73.1 % 58.1 % Lymphocytes (%) (Auto) 17.5 % 30.0 % Monocytes (%) (Auto) 8.8 % 10.5 % Eosinophils (%) (Auto) 0.5 % 1.0 % Basophils (%) (Auto) 0.1 % 0.4 % Neutrophils # (Auto) 5.5 TH/MM3 3.5 TH/MM3 Lymphocytes # (Auto) 1.3 TH/MM3 1.8 TH/MM3 Monocytes # (Auto) 0.7 TH/MM3 0.6 TH/MM3 Eosinophils # (Auto) 0.0 TH/MM3 0.1 TH/MM3 Basophils # (Auto) 0.0 TH/MM3 0.0 TH/MM3 CBC Comment DIFF FINAL DIFF FINAL Differential Comment Prothrombin Time 11.0 SEC Prothromb Time International 1.0 RATIO Ratio Activated Partial 32.4 SEC Thromboplast Time Sodium Level 141 MEQ/L 141 MEQ/L Potassium Level 4.0 MEQ/L 3.6 MEQ/L Chloride Level 105 MEQ/L 108 MEQ/L Carbon Dioxide Level 28.5 MEQ/L 25.1 MEQ/L Anion Gap 8 MEQ/L 8 MEQ/L Blood Urea Nitrogen 13 MG/DL 12 MG/DL Creatinine 1.09 MG/DL 0.96 MG/DL Estimat Glomerular Filtration 70 ML/MIN 81 ML/MIN Rate Random Glucose 104 MG/DL 105 MG/DL Calcium Level 8.3 MG/DL 8.2 MG/DL Total Bilirubin 0.5 MG/DL 0.4 MG/DL Aspartate Amino Transf 15 U/L 13 U/L (AST/SGOT) Alanine Aminotransferase 26 U/L 19 U/L (ALT/SGPT) Alkaline Phosphatase 69 U/L 56 U/L Total Protein 6.8 GM/DL 5.8 GM/DL Albumin 3.4 GM/DL 2.8 GM/DL Lipase 92 U/L Physical Examination HEENT: normocephalic; atraumatic; no jaundice. Throat is clear. NECK: Neck is supple, no JVD, no lymphadenopathy. CHEST: Chest is clear to auscultation and percussion. CARDIAC: Regular rate and rhythm with no murmur gallop or rubs. ABDOMEN: Soft, nondistended, mild tenderness in lower abdomen ; no hepatosplenomegaly; bowel sounds are present in all four quadrants. EXTREMITIES: No clubbing, cyanosis, or edema. SKIN: Normal; no rash; no jaundice. 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 Assessment and Plan Plan - Colitis- Patient with complaints of rectal bleeding that started on Wednesday associated with severe stabbing constant lower abdomen pain. Patient was seen in ER on 10/15/16 for similar symptoms, labs essentially unremarkable, Abd X-ray negative at the time, Dr. Spencer contacted by ER physician, recommended follow up as outpatient in office for further eval. He was seen in our office by Dr. Spencer and referred to ER for CT and plan for EGD/Colonoscopy due to feeling dizzy and having multiple episodes of BRBPR. The bleeding fills the toilet, with mucus, he states he was having an episode approx. every 30 -45 minutes independent of BM. States he had few BMs but they are normal in color with out bleeding. Denies nausea, vomiting, diarrhea, fever, or chills. Denies previous history of this, denies recent abx, sick contact or travel. Aleksander family hx of IBD. Denies NSAIDs. He had a colonoscopy 7 years ago per patient and that was normal. The pain is much better today. He had a rectal bleed this morning. CT Abdomen/Pelvis w/ question distal colonic wall thickening which may reflect colitis, small perisplenic fluid of undetermined significance. Hgb 10.8, previously 13.1 on 10/15/16. S/p Cipro/Flagyl in ER. Started on Protonix gtt - Anemia- secondary to acute blood loss - Anxiety, Depression, BPH and HTN per attending Plan: - ROBERT - Colonoscopy on Wednesday - Clear liquids in am - Golytely tomorrow - PPI - Monitor hh - Transfuse as needed - Cont. Cipro and Flagyl - Stools studies - Patient seen and examined by Dr. Lee and myself and this note is written on his behalf. Jose Antonio Ward Oct 17, 2016 11:01
[2016-10-17 12:00] VITALS: BP 116/67; PULSE 68; RESP 19; TEMP 96.8; O2SAT 100
[2016-10-17 12:38] LABS: HEMATOCRIT 33.1 % (39.0-51.0); REVIEW FLAG FINAL
--- NOTE | 2016-10-17 13:33 | HHI.PR ---
Subjective Remarks Follow up for GI bleed. Patient admits to abdominal pain and rectal bleeding for two days now. Patient states a significant improvement of abdominal pain since yesterday. Still continues to have blood in stool, states that the amount is close to "1-2 shot glasses" with each bowel movement. Denies any associated fever, cough, chills, shortness of breath or chest pain. Patient states last colonoscopy was seven years ago, at that time no abnormalities were found. Patient has just recently moved from [place], and has not established a PCP here. Does admit to increased stress in life, particularly related to his recent divorce. Denies any current alcohol or tobacco use. GI has seen patient this a.m., EGD/colonoscopy scheduled for Thursday 10/19. Objective Vitals Vital Signs Date Time Temp Pulse Resp B/P Pulse Ox O2 Delivery O2 Flow Rate FiO2 10/17/16 12:00 96.8 68 19 116/67 100 10/17/16 08:00 97.0 51 16 112/67 98 10/17/16 04:29 97.7 60 18 105/55 96 10/17/16 01:55 18 10/16/16 22:40 97.4 78 20 113/70 98 10/16/16 21:23 18 10/16/16 21:15 18 10/16/16 19:37 62 18 164/95 96 Room Air 10/16/16 17:07 72 18 170/79 10/16/16 17:02 18 10/16/16 17:02 99 Room Air 10/16/16 17:02 67 18 153/104 10/16/16 14:49 97.6 70 24 166/85 100 Room Air I/O 10/16/16 10/16/16 10/16/16 10/17/16 10/17/16 10/17/16 07:00 15:00 23:00 07:00 15:00 23:00 Intake Total 168 ml 380 ml 704 ml Balance 168 ml 380 ml 704 ml Intake Oral 380 ml IV Total 168 ml 704 ml # Voids 2 Result Diagram: 10/17/16 1727 10/17/16 0538 Imaging Last Impressions Abdomen/Pelvis CT 10/16/16 1640 Signed Impressions: Service Date/Time: Sunday, October 16, 2016 18:02 - CONCLUSION: Question distal colonic wall thickening which may reflect colitis. Small perisplenic fluid collection of undetermined origin and significance. Raimundo Ghotra MD Objective Remarks GENERAL: Well-nourished, well-developed patient in NAD. SKIN: Warm and dry. No rash. HEENT: Normocephalic. Atraumatic. Pupils equal and round. No scleral icterus. Mucous membranes pink and moist. NECK: Supple. Trachea midline. CARDIOVASCULAR: Regular rate and rhythm. S1, S2 noted. No murmur appreciated. RESPIRATORY: No accessory muscle use. Clear to auscultation. Breath sounds equal bilaterally. GASTROINTESTINAL: Abdomen soft, non-tender, nondistended. Normoactive bowel sounds x4. MUSCULOSKELETAL: No obvious deformities. Extremities without clubbing, cyanosis , or edema. NEUROLOGICAL: Awake and alert. No obvious cranial nerve deficits. Motor grossly within normal limits. 5/5 muscle strength in bilateral upper and lower extremities. Normal speech. PSYCHIATRIC: Appropriate mood and affect; insight and judgment normal. Urinary Catheter: No Vascular Central Line Catheter: No A/P Problem List: (1) HTN (hypertension) ICD Code: I10 Status: Acute Assessment and Plan Mr. Quintanilla is a 56-year-old with a known history of hypertension and BPH presented to the ED with abdominal pain and rectal bleeding for two days. Anemia secondary to GI bleed: GI consulted and following. Scheduled for EGD/ colonoscopy on Monday 10/16. Initial hemoglobin 12.3, currently 11.4. Continue H &H every 6 hours, monitor closely for any signs of increased rectal bleeding, transfuse as needed. Continue Protonix IV drip. Colitis: Abdominalpelvis CT report reviewed, question distal colonic wall thickening which may reflect colitis. Small perisplenic fluid collection of undetermined origin and significance. Continue Cipro and Flagyl IV. Control pain, [place] and morphine available for pain scale. GI ordered for stool studies. Dehydration: Continue IV fluid. Encourage by mouth intake, regular diet ordered. Hypertension: Continue Lopressor. Continue to monitor. DVT prophylaxis: SCDs Written by Nisha Willard, acting as scribe for [] on 10/17/16 at 1130. Medical Decision Making MDM Remarks This note was transcribed by scribe Nisha Willard. I, Dr. Kika Pelletier personally performed the history, physical exam, and medical decision making; and confirmed the accuracy of the information in the transcribed note. Authenticated by Dr. Kika Pelletier on 10/17/16 at 20:30. Nisha Willard Oct 17, 2016 13:33 Kika Pelletier MD Oct 17, 2016 20:31
[2016-10-17 16:00] VITALS: BP 147/84; PULSE 59; RESP 18; TEMP 96.4; O2SAT 100
[2016-10-17 17:55] LABS: HEMATOCRIT 32.8 % (39.0-51.0); REVIEW FLAG FINAL
[2016-10-17 20:00] VITALS: BP 158/88; PULSE 60; RESP 18; TEMP 96.7; O2SAT 96
[2016-10-17 21:40] VITALS: PULSE 57
[2016-10-17] MEDS: FINASTERIDE 5 MG TAB PO SCH (21:41)
[2016-10-17] MEDS: METOPROLOL TARTRATE 100 MG TAB PO SCH (21:41)
[2016-10-17] MEDS: TAMSULOSIN HCL 0.4 MG CAP PO SCH (21:41)
[2016-10-17 23:14] LABS: HEMATOCRIT 31.5 % (39.0-51.0); REVIEW FLAG FINAL
[2016-10-18 00:29] VITALS: BP 130/79; PULSE 52; RESP 18; TEMP 96; O2SAT 97
[2016-10-18] MEDS: SODIUM CHLOR 0.9% 1000 ML INJ 1,000 ML IV SCH ×3 (02:09→20:12)
[2016-10-18] MEDS: metroNIDAZOLE 500 MG INJ 100 ML IV SCH ×3 (03:22→17:33)
[2016-10-18 04:07] VITALS: BP 127/66; PULSE 51; RESP 17; TEMP 96; O2SAT 98
[2016-10-18 04:08] LABS: HEMATOCRIT 30.8 % (39.0-51.0); MEAN CELL VOLUME 91.1 FL (80.0-100.0); MEAN CORPUSCULAR HEMOGLOBIN 31.6 PG (27.0-34.0); MEAN CORPUSCULAR HGB CONC 34.7 % (32.0-36.0); PLATELET COUNT 112 TH/MM3 (150-450); RED BLOOD COUNT 3.38 MIL/MM3 (4.50-5.90); RED CELL DISTRIBUTION WIDTH 13.8 % (11.6-17.2); REVIEW FLAG FINAL; WHITE BLOOD COUNT 4.3 TH/MM3 (4.0-11.0)
[2016-10-18] MEDS: CIPROFLOXACIN 400 MG PREMIX 200 ML IV SCH ×2 (05:42→17:28)
[2016-10-18] MEDS: PANTOPRAZOLE INJ 80 MG in SODIUM CHLORIDE 0.9% INJ 100 ML IV SCH ×2 (05:46→16:14)
[2016-10-18 08:00] VITALS: BP 146/83; PULSE 59; RESP 16; TEMP 96.6; O2SAT 98
[2016-10-18] MEDS: DULoxetine HCl DR 60 MG CAP PO SCH (08:22)
[2016-10-18] MEDS: GABAPENTIN 300 MG CAP PO SCH ×3 (08:22→17:28)
[2016-10-18] MEDS: ACETAMINOPHEN/HYDROcodone 325 MG/5 MG TAB PO PRN ×2 (08:22→18:11)
[2016-10-18] MEDS: SODIUM CHLORIDE 0.9% FLUSH 10 ML FLUSH IV FLUSH SCH ×2 (08:23→20:11)
[2016-10-18] MEDS: DIAZEPAM 5 MG TAB PO PRN ×2 (09:00→20:11)
--- NOTE | 2016-10-18 10:54 | HHI.PR ---
Subjective Remarks Follow up for GI bleed. Patient reports feeling much better. He states he had no rectal bleeding yesterday, and had a very small bowel movement this morning with very little blood. His abdominal pain is much improved, denies any pain currently. Denies any nausea or vomiting. He is tolerating oral intake. Denies any fevers or chills. Planning for colonoscopy tomorrow. He is requesting for a sleep aid, did not do well with Ambien in the past, agrees to Restoril. Objective Vitals Vital Signs Date Time Temp Pulse Resp B/P Pulse Ox O2 Delivery O2 Flow Rate FiO2 10/18/16 08:00 96.6 59 16 146/83 98 10/18/16 04:07 96.0 51 17 127/66 98 10/18/16 00:29 96.0 52 18 130/79 97 10/17/16 22:42 18 10/17/16 21:40 57 10/17/16 20:00 96.7 60 18 158/88 96 10/17/16 16:00 96.4 59 18 147/84 100 10/17/16 12:00 96.8 68 19 116/67 100 I/O 10/17/16 10/17/16 10/17/16 10/18/16 10/18/16 10/18/16 07:00 15:00 23:00 07:00 15:00 23:00 Intake Total 380 ml 3018 ml 2063 ml 1259 ml Balance 380 ml 3018 ml 2063 ml 1259 ml Intake Oral 380 ml 1440 ml 480 ml 360 ml IV Total 1500 ml 1583 ml 899 ml Other 78 ml # Voids 2 2 3 2 # Bowel Movements 0 1 Result Diagram: 10/18/16 0315 10/17/16 0538 Imaging Last Impressions Abdomen/Pelvis CT 10/16/16 1640 Signed Impressions: Service Date/Time: Sunday, October 16, 2016 18:02 - CONCLUSION: Question distal colonic wall thickening which may reflect colitis. Small perisplenic fluid collection of undetermined origin and significance. Raiumndo Ghotra MD Objective Remarks GENERAL: Well-nourished, well-developed middle aged male patient in [facility]. SKIN: Warm and dry. No rash. HEENT: Normocephalic. Atraumatic. Pupils equal and round. No scleral icterus. Mucous membranes pink and moist. NECK: Supple. Trachea midline. CARDIOVASCULAR: Regular rate and rhythm. S1, S2 noted. No murmur appreciated. RESPIRATORY: No accessory muscle use. Clear to auscultation. Breath sounds equal bilaterally. GASTROINTESTINAL: Abdomen soft, non-tender, nondistended. Normoactive bowel sounds x4. MUSCULOSKELETAL: No obvious deformities. Extremities without clubbing, cyanosis , or edema. NEUROLOGICAL: Awake and alert. No obvious cranial nerve deficits. Motor grossly within normal limits. Moves all extremities spontaneously. Normal speech. PSYCHIATRIC: Appropriate mood and affect; insight and judgment normal. Medications and IVs Current Medications Medications (Trade) Dose Ordered Sig/Kiara Route Start Time Stop Time Status Last Admin Sodium Chloride 2 ml 2 ml UNSCH PRN IVF 10/16/16 16:45 Pantoprazole Sodium 80 mg/ Sodium Chloride 100 ml @ 10 mls/hr Q10H IV 10/16/16 16:45 10/18/16 05:46 Ciprofloxacin/ Dextrose 200 ml @ 200 mls/hr Q12H IV 10/17/16 07:00 10/18/16 05:42 Metronidazole 100 ml @ 100 mls/hr Q8H IV 10/17/16 03:00 10/18/16 10:33 (NS 1000 ml Inj) 1,000 ml @ 100 mls/hr Q10H IV 10/16/16 19:37 10/18/16 10:33 (NS Flush) 2 ml UNSCH PRN IV FLUSH 10/16/16 19:45 (NS Flush) 2 ml BID IV FLUSH 10/16/16 21:00 10/18/16 08:23 (Zofran Inj) 4 mg Q6H PRN IVP 10/16/16 19:45 (Dulcolax Supp) 10 mg DAILY PRN RECTAL 10/16/16 19:45 (Tylenol) 650 mg Q6H PRN PO 10/16/16 19:45 10/18/16 10:37 ([place] 5-325 Mg) 1 tab Q4H PRN PO 10/16/16 19:45 10/18/16 08:22 (Morphine Inj) 2 mg Q3H PRN IV 10/16/16 19:45 10/16/16 20:12 (Valium) 5 mg TID PRN PO 10/16/16 19:45 10/18/16 09:00 (Cymbalta Dr) 60 mg DAILY PO 10/17/16 09:00 10/18/16 08:22 (Proscar) 5 mg HS PO 10/16/16 21:00 10/17/16 21:41 (Neurontin) 600 mg TID PO 10/17/16 09:00 10/18/16 08:22 (Lopressor) 100 mg HS PO 10/16/16 21:00 10/17/16 21:41 (Flomax) 0.4 mg HS PO 10/16/16 21:00 10/17/16 21:41 (Colyte Liq) 4,000 ml ONCE ONCE PO 10/18/16 16:00 10/18/16 16:01 A/P Problem List: (1) HTN (hypertension) ICD Code: I10 Status: Acute Assessment and Plan Mr. Quintanilla is a 56-year-old with a known history of hypertension and BPH presented to the ED with abdominal pain and rectal bleeding for two days. Anemia secondary to GI bleed: GI consulted and following. Scheduled for EGD/ colonoscopy on Thursday 10/19. Initial hemoglobin 12.3, currently 10.7. Continue H &H every 6 hours, monitor closely for any signs of increased rectal bleeding, transfuse as needed. Continue Protonix IV drip. H&H stable. Colitis: Abd/pelvis CT reviewed, question distal colonic wall thickening which may reflect colitis; Small perisplenic fluid collection of undetermined origin and significance. Continue Cipro and Flagyl IV. Control pain, [place] and morphine available for pain scale. GI ordered for stool studies, pending. Symptoms improving on abx. Dehydration: Continue IV fluid. Encourage by mouth intake, regular diet ordered. Hypertension: Continue Lopressor. Continue to monitor. Insomnia: while hospitalized. Patient requested sleep aide, did not do well with Ambien in the past, will add Restoril prn. DVT prophylaxis: SCDs Written by Belén Willis, acting as scribe for Dr. Pelletier on 10/18/16 at 11: 40. Attending Statement This note was transcribed by scribhamzah Melissa. I, Dr. Kika Pelletier personally performed the history, physical exam, and medical decision making; and confirmed the accuracy of the information in the transcribed note. Authenticated by Dr. Kika Pelletier on 10/18/16 at 12:11. Belén Willis PA-C Oct 18, 2016 10:54 Kika Pelletier MD Oct 18, 2016 12:11
[2016-10-18 11:03] LABS: C. DIFF EPI 027 PRESUMPTIVE NEGATIVE (NEGATIVE); C. DIFF TOXIN PCR NEGATIVE (NEGATIVE)
[2016-10-18 12:00] VITALS: BP 169/90; PULSE 60; RESP 17; TEMP 96.5; O2SAT 100
[2016-10-18] MEDS ORDERED: TEMAZEPAM 15 MG CAP PO PRN (12:00)
[2016-10-18 13:38] LABS: HEMATOCRIT 31.8 % (39.0-51.0); REVIEW FLAG FINAL
[2016-10-18 16:00] VITALS: BP 171/85; PULSE 59; RESP 17; TEMP 97.5; O2SAT 100
[2016-10-18] MEDS ORDERED: PEG (High)/E-LYTE SOLN 4000 ML BTL PO ONE (16:00)
--- NOTE | 2016-10-18 16:31 | HHI.GIFU ---
Subjective Remarks Patient is sitting up in chair, about to start doing the prep for colonoscopy tomorrow, he had a small amount of bleeding this morning, but not bad. No nausea or vomiting Objective Vitals I&O Vital Signs Date Time Temp Pulse Resp B/P Pulse Ox O2 Delivery O2 Flow Rate FiO2 10/18/16 16:00 97.5 59 17 171/85 100 10/18/16 12:00 96.5 60 17 169/90 100 10/18/16 08:00 96.6 59 16 146/83 98 10/18/16 04:07 96.0 51 17 127/66 98 10/18/16 00:29 96.0 52 18 130/79 97 10/17/16 22:42 18 10/17/16 21:40 57 10/17/16 20:00 96.7 60 18 158/88 96 I/O 10/17/16 10/17/16 10/17/16 10/18/16 10/18/16 10/18/16 07:00 15:00 23:00 07:00 15:00 23:00 Intake Total 380 ml 5058 ml 2063 ml 1259 ml Balance 380 ml 5058 ml 2063 ml 1259 ml Intake Oral 380 ml 3480 ml 480 ml 360 ml IV Total 1500 ml 1583 ml 899 ml Other 78 ml # Voids 2 6 3 2 # Bowel Movements 1 1 Laboratory Laboratory Tests Test 10/17/16 10/17/16 10/18/16 10/18/16 17:27 23:00 03:15 08:45 Hemoglobin 10.9 11.0 10.7 Hematocrit 32.8 31.5 30.8 White Blood Count 4.3 Red Blood Count 3.38 Mean Corpuscular Volume 91.1 Mean Corpuscular Hemoglobin 31.6 Mean Corpuscular Hemoglobin 34.7 Concent Red Cell Distribution Width 13.8 Platelet Count 112 Mean Platelet Volume 7.9 Stool C. difficile Toxin (PCR) NEGATIVE Stl C. difficile Toxin PRESUMPTIVE Epiderm 027 NEGATIVE Test 10/18/16 13:00 Hemoglobin 10.8 Hematocrit 31.8 Date/Time Procedure Status Source Growth 10/18/16 08:45 Cryptosporidium Exam Received Stool Stool Pending 10/18/16 08:45 Stool Pus ([facility]IS) Received Stool Stool Pending 10/18/16 08:45 Giardia Antigen ([facility]) Received Stool Stool Pending 10/18/16 08:45 - Final Complete Stool Stool NO ENTERIC PATHOGENS DETECTED BY PCR... Imaging Last Impressions Abdomen/Pelvis CT 10/16/16 1640 Signed Impressions: Service Date/Time: Sunday, October 16, 2016 18:02 - CONCLUSION: Question distal colonic wall thickening which may reflect colitis. Small perisplenic fluid collection of undetermined origin and significance. Raimundo Ghotra MD Physical Exam HEENT: normocephalic; atraumatic; no jaundice. NECK: Neck is supple, no JVD, no lymphadenopathy. CHEST: Chest is clear to auscultation and percussion. CARDIAC: Regular rate and rhythm with no murmur gallop or rubs. ABDOMEN: Soft, nondistended, lower abdomen tenderness; no hepatosplenomegaly; bowel sounds are present in all four quadrants. EXTREMITIES: No clubbing, cyanosis, or edema. SKIN: Normal; no rash; no jaundice. SOFTWARE TRAINER: No focal deficits; alert and oriented times three. Assessment and Plan Plan - Colitis- Patient with complaints of rectal bleeding that started on Wednesday associated with severe stabbing constant lower abdomen pain. some bleeding this morning Stools negative for C-diff, stool cx pending. hh stable 10.8/31.8 Patient was seen in ER on 10/15/16 for similar symptoms, labs essentially unremarkable, Abd X-ray negative at the time, Dr. Spencer contacted by ER physician, recommended follow up as outpatient in office for further eval. He was seen in our office by Dr. Spencer and referred to ER for CT and plan for EGD/Colonoscopy due to feeling dizzy and having multiple episodes of BRBPR. The bleeding fills the toilet, with mucus, he states he was having an episode approx. every 30 -45 minutes independent of BM. States he had few BMs but they are normal in color with out bleeding. Denies nausea, vomiting, diarrhea, fever, or chills. Denies previous history of this, denies recent abx, sick contact or travel. [place] family hx of IBD. Denies NSAIDs. He had a colonoscopy 7 years ago per patient and that was normal. The pain is much better today. He had a rectal bleed this morning. CT Abdomen/Pelvis w/ question distal colonic wall thickening which may reflect colitis, small perisplenic fluid of undetermined significance. Hgb previously 13.1 on 10/15/16. S/p Cipro/Flagyl in ER. Started on Protonix gtt - Anemia- secondary to acute blood loss, hh stable - Anxiety, Depression, BPH and HTN per attending Plan: - Clear liquids - Colonoscopy on Wednesday - Golytely today - NPO mn - PPI - Monitor hh - Transfuse as needed - Cont. Cipro and Flagyl - Await Stools studies - Patient seen and examined by Dr. Lee and myself and this note is written on his behalf. Jose Antonio Ward Oct 18, 2016 16:31
[2016-10-18 20:00] VITALS: BP 162/88; PULSE 50; RESP 20; TEMP 96.4; O2SAT 97
[2016-10-18] MEDS: TAMSULOSIN HCL 0.4 MG CAP PO SCH (20:11)
[2016-10-18] MEDS: FINASTERIDE 5 MG TAB PO SCH (20:11)
[2016-10-18] MEDS: METOPROLOL TARTRATE 100 MG TAB PO SCH (20:11)
[2016-10-18] MEDS: MORPHINE SULFATE 4 MG/ML INJ IV PRN (20:12)
[2016-10-19] MEDS: SODIUM CHLOR 0.9% 1000 ML INJ 1,000 ML IV SCH (00:17)
[2016-10-19 00:54] VITALS: BP 144/74; PULSE 60; RESP 18; TEMP 97.7; O2SAT 97
[2016-10-19] MEDS: metroNIDAZOLE 500 MG INJ 100 ML IV SCH ×2 (03:59→09:59)
[2016-10-19] MEDS: PANTOPRAZOLE INJ 80 MG in SODIUM CHLORIDE 0.9% INJ 100 ML IV SCH (03:59)
[2016-10-19 04:44] VITALS: BP 156/82; PULSE 51; RESP 18; TEMP 96.4; O2SAT 96
[2016-10-19] MEDS: CIPROFLOXACIN 400 MG PREMIX 200 ML IV SCH (06:55)
[2016-10-19 07:53] VITALS: BP 150/81; PULSE 53; RESP 18; TEMP 96.1; O2SAT 97
[2016-10-19 08:00] VITALS: BP 150/81; PULSE 53; RESP 18; TEMP 96.1; O2SAT 97
[2016-10-19] MEDS ORDERED: PROPOFOL 200 MG/20 ML AMP IV ONE (08:27)
[2016-10-19] MEDS ORDERED: DO NOT ADM ANY ANTICOAGULANT DRUGS PRN (08:38)
--- NOTE | 2016-10-19 08:43 | GIPROC ---
[facility] [address] [facility]. [facility], [address] COLONOSCOPY PROCEDURE REPORT EXAM DATE: 10/19/2016 PATIENT NAME: Kanu Quintanilla V MR #: [id number] BIRTHDATE: 1960 ENDOSCOPIST: Zora Miranda MD ORDER #: [id number] TEACHER: Daniel Hardy and Shane Barriga STATUS: inpatient INDICATIONS: The patient is a 56 yr old male here for a colonoscopy due to gi bleeding, colitis PROCEDURE PERFORMED: Colonoscopy with biopsy MEDICATIONS: None and Per Anesthesia. PREP QUALITY: good PREP TYPE:GoLytely ESTIMATED BLOOD LOSS: None CONSENT: The patient understands the risks and benefits of the procedure and understands that these risks include, but are not limited to: sedation, allergic reaction, infection, perforation and/or bleeding. Alternative means of evaluation and treatment include, among others: physical exam, x-rays, and/or surgical intervention. The patient elects to proceed with this endoscopic procedure. medical equipment was checked for proper function. Hand hygiene and appropriate measures for infection prevention was taken. After the risks, benefits and alternatives of the procedure were thoroughly explained, Informed consent was verified, confirmed and timeout was successfully executed by the treatment team. A digital exam revealed hemorrhoids The Pentax [id number] and [id number] endoscope was introduced through the anus and advanced to the cecum, which was identified by both the appendix and ileocecal valve. The instrument was then slowly withdrawn as the colon was fully examined. COLON FINDINGS: Left sided colitis -biopsy descending, sigmoid rest of colon normal -biopsy from ascending and rectum. Retroflexed views revealed internal hemorrhoids and Retroflexed views revealed small internal hemorrhoids The scope was then completely withdrawn from the patient and the procedure terminated. PROCEDURE WITHDRAWAL TIME:6minutes ADVERSE EVENTS: There were no complications. IMPRESSIONS: 1. Left sided colitis -biopsy descending, sigmoid rest of colon normal -biopsy from ascending and rectum 2. Retroflexed views revealed internal hemorrhoids 3. Retroflexed views revealed small internal hemorrhoids 4. Revealed hemorrhoids RECOMMENDATIONS: 1. Await biopsy results. Biopsy results will not be ready for 7-10 days. If you don't hear from us in two weeks, call our office for results. 2. Benefiber 2 tsp daily 3. Avoid NSAIDS and Aspirin 4. Probiotics from any [facility] or health food store RECALL: Colonoscopy, pending biopsy results Zora Miranda MD eSigned: Zora Miranda MD 10/19/2016 8:43 AM cc:
[2016-10-19] MEDS: SODIUM CHLORIDE 0.9% FLUSH 10 ML FLUSH IV FLUSH SCH (09:00)
[2016-10-19] MEDS ORDERED: BENEPOW8 PO (09:30)
[2016-10-19] MEDS ORDERED: LACTCHW3 CHEW (09:30)
--- NOTE | 2016-10-19 09:31 | HHI.DCPOC ---
Discharge Care Plan Diagnosis: (1) Colitis (2) Rectal bleeding (3) Dehydration (4) HTN (hypertension) Goals to Promote Your Health * To prevent worsening of your condition and complications * To maintain your health at the optimal level Directions to Meet Your Goals Take your medications as prescribed Follow your dietary instruction Follow activity as directed Keep your appointments as scheduled Take your immunizations and boosters as scheduled If your symptoms worsen call your PCP, if no PCP go to Urgent Care Center or Emergency Room Smoking is Dangerous to Your Health. Avoid second hand smoke Call the 24-hour hour crisis hotline for domestic abuse at Belén Willis PA-C Oct 19, 2016 9:31 am
[2016-10-19] MEDS ORDERED: METR500T10 PO (09:34)
[2016-10-19] MEDS ORDERED: CIPR-9 PO (09:34)
[2016-10-19] MEDS: GABAPENTIN 300 MG CAP PO SCH (09:53)
[2016-10-19] MEDS: DULoxetine HCl DR 60 MG CAP PO SCH (09:53)
[2016-10-19] MEDS: ACETAMINOPHEN/HYDROcodone 325 MG/5 MG TAB PO PRN (09:59)
[2016-10-19] MEDS: DIAZEPAM 5 MG TAB PO PRN (09:59)
--- NOTE | 2016-10-19 11:50 | HHI.DS ---
cc: Zora Miranda MD Discharge Summary Admission Date Oct 16, 2016 at 7:30 pm Discharge Date: Oct 19, 2016 Admitting Diagnosis GI Bleed, Colitis (1) Colitis ICD Code: K52.9 Diagnosis: Principal (2) GI bleed ICD Code: K92.2 Diagnosis: Principal (3) Rectal bleeding ICD Code: K62.5 Diagnosis: Principal (4) Dehydration ICD Code: E86.0 Diagnosis: Secondary (5) HTN (hypertension) ICD Code: I10 Diagnosis: Secondary Procedures Colonoscopy 10/19/[address] Miranda showed left sided colitis, biopsy taken, small internal hemorrhoids Brief History - From Admission This is a 56-year-old male with a PMH of Anxiety, Depression, BPH and HTN who presented to the ER with complaints of rectal bleeding x2 days. Denies nausea, vomiting or diarrhea. Reports occasional cramping abdominal pain. Seen in ER on 10/15/16 for similar symptoms, labs essentially unremarkable, Abd X-ray negative, Dr. Spencer contacted by ER physician, recommended follow up as outpatient in office for further eval. Today w/ multiple episodes of BRBPR, seen in office by Dr. Spencer and referred to ER for CT and plan for EGD/ Colonoscopy. On arrival, BP 166/85, HR 70, O2 sat 100% on RA, Afebrile. Hgb 12.3, previously 13.1 on 10/15/16. Platelets 127, previously 139 on 10/15/16. Chemistry essentially unremarkable except for GFR 70. INR 1.0. CT Abdomen/ Pelvis w/ question distal colonic wall thickening which may reflect colitis, small perisplenic fluid of undetermined significance. S/p Cipro/Flagyl in ER. Started on Protonix gtt CBC/BMP: 10/18/16 1300 10/17/16 0538 Significant Findings Laboratory Tests Test 10/16/16 10/17/16 10/17/16 10/17/16 17:15 05:38 12:08 17:27 Red Blood Count 3.98 MIL/MM3 3.40 MIL/MM3 (4.50-5.90) (4.50-5.90) Hemoglobin 12.3 GM/DL 10.8 GM/DL 11.4 GM/DL 10.9 GM/DL (13.0-17.0) (13.0-17.0) (13.0-17.0) (13.0-17.0) Hematocrit 36.5 % 31.0 % 33.1 % 32.8 % (39.0-51.0) (39.0-51.0) (39.0-51.0) (39.0-51.0) Platelet Count 127 TH/MM3 110 TH/MM3 (150-450) (150-450) Neutrophils (%) (Auto) 73.1 % (16.0-70.0) Monocytes (%) (Auto) 8.8 % (0.0-8.0) 10.5 % (0.0-8.0) Activated Partial 32.4 SEC Thromboplast Time (24.3-30.1) Estimat Glomerular Filtration 70 ML/MIN (>89) 81 ML/MIN (>89) Rate Calcium Level 8.3 MG/DL 8.2 MG/DL (8.5-10.1) (8.5-10.1) Chloride Level 108 MEQ/L (98-107) Aspartate Amino Transf 13 U/L (15-37) (AST/SGOT) Total Protein 5.8 GM/DL (6.4-8.2) Albumin 2.8 GM/DL (3.4-5.0) Test 10/17/16 10/18/16 10/18/16 23:00 03:15 13:00 Hemoglobin 11.0 GM/DL 10.7 GM/DL 10.8 GM/DL (13.0-17.0) (13.0-17.0) (13.0-17.0) Hematocrit 31.5 % 30.8 % 31.8 % (39.0-51.0) (39.0-51.0) (39.0-51.0) Red Blood Count 3.38 MIL/MM3 (4.50-5.90) Platelet Count 112 TH/MM3 (150-450) Imaging Last Impressions Abdomen/Pelvis CT 10/16/16 1640 Signed Impressions: Service Date/Time: Juan, October 16, 2016 18:02 - CONCLUSION: Question distal colonic wall thickening which may reflect colitis. Small perisplenic fluid collection of undetermined origin and significance. Raimundo Ghotra MD PE at Discharge GENERAL: Well-nourished, well-developed middle aged male patient in [facility]. SKIN: Warm and dry. No rash. HEENT: Normocephalic. Atraumatic. Pupils equal and round. No scleral icterus. Mucous membranes pink and moist. NECK: Supple. Trachea midline. CARDIOVASCULAR: Regular rate and rhythm. S1, S2 noted. No murmur appreciated. RESPIRATORY: No accessory muscle use. Clear to auscultation. Breath sounds equal bilaterally. GASTROINTESTINAL: Abdomen soft, non-tender, nondistended. Normoactive bowel sounds x4. MUSCULOSKELETAL: No obvious deformities. Extremities without clubbing, cyanosis , or edema. NEUROLOGICAL: Awake and alert. No obvious cranial nerve deficits. Motor grossly within normal limits. Moves all extremities spontaneously. Normal speech. PSYCHIATRIC: Appropriate mood and affect; insight and judgment normal. Pt update on day of discharge Follow up for colitis, GI bleed. The patient is seen s/p colonoscopy. Feel well today. Tolerating oral intake. Denies any abdominal pain, nausea/vomiting, or rectal bleeding. He wants to go home. Hospital Course Mr. Quintanilla is a 56-year-old with a known history of hypertension and BPH presented to the ED with abdominal pain and rectal bleeding for two days. Anemia secondary to GI bleed: GI consulted and following. S/p colonoscopy 10/19 which showed left sided colitis and internal hemorrhoids, likely source of bleeding. Initial hemoglobin 12.3, given IVF, currently stable 10.8. Monitored serial H&H every 6 hours, monitor closely for any signs of increased rectal bleeding, did not required transfusion. Continue Protonix IV drip, discharged on po protonix. H&H stable. GI recommended benefiber and probiotics at discharge. F/up on biopsies as outpatient. Acute Colitis: Abd/pelvis CT reviewed, distal colonic wall thickening may reflect colitis; Small perisplenic fluid collection of undetermined origin and significance. Continue Cipro and Flagyl IV. Control pain, [place] and morphine available for pain scale. C.diff and stool studies negative. Symptoms much improved on abx. Discharged on po Cipro/Flagyl [id number] (14days total). Dehydration: Continue IV fluid. Encourage by mouth intake, regular diet ordered , patient tolerated well. Written by Belén Willis, acting as scribe for Dr. Pelletier on 10/19/16 at 12: 10. Pt Condition on Discharge: Stable Discharge Disposition: Discharge Home Discharge Time: > 30 minutes Discharge Instructions DIET: Follow Instructions for: As Tolerated, No Restrictions Follow up Referrals: Gastroenterology - 1 Week with Zora Miranda MD PCP Follow-up - 1 Week New Medications: Ciprofloxacin (Cipro) 500 Mg Tab 500 MG PO BID Infection Days 10 Ref 0 TAB Lactobacillus Acidophilus (Lactinex) 1 Chew 1 TAB CHEW BID Nutritional Supplement #60 Ref 0 TAB Metronidazole (Metronidazole) 500 Mg Tab 500 MG PO Q8HR Infection Days 10 Ref 0 TAB Wheat Dextrin Powder (Benefiber Powder) 1 Scoop Container 1 SCOOP PO DAILY Mix in water or juice Constipation #1 Ref 0 CONTAINER Continued Medications: Alfuzosin ER 24 HR (Alfuzosin ER 24 HR) 10 Mg Tab 10 MG PO HS BPH #30 Ref 0 TAB Diazepam (Diazepam) 5 Mg Tab 5 MG PO TID PRN ANXIETY Ref [address] (Dul[address]etine [address]) 60 Mg Capdr 60 MG PO DAILY #30 Ref 0 CAP Finasteride (Finasteride) 5 Mg Tab 5 MG PO HS Do not crush. Manage Prostate Problems #30 Ref 0 TAB Gabapentin (Gabapentin) 600 Mg Tab 600 MG PO TID #90 Ref 0 TAB Lisinopril (Lisinopril) 40 Mg Tab 40 MG PO DAILY Blood Pressure Management #30 Ref 0 TAB Metoprolol Tartrate (Metoprolol Tartrate) 100 Mg Tab 100 MG PO HS #30 Ref 0 TAB Pantoprazole (Protonix) 40 Mg Tab 40 MG PO DAILY Reflux #30 Ref 0 TAB Tramadol (Tramadol) 50 Mg Tab 50 MG PO Q4H PRN PAIN Ref 0 TAB Additional Information This note was transcribed by scribe belén willis. I, Dr. Kika Pelletier personally performed the history, physical exam, and medical decision making; and confirmed the accuracy of the information in the transcribed note. Authenticated by Dr. Kika Pelletier on 10/19/16 at 22:26. Belén Willis PA-C Oct 19, 2016 11:50 Kika Pelletier MD Oct 19, 2016 22:26
[2016-10-19 12:00] VITALS: BP 145/78; PULSE 58; RESP 18; TEMP 96.9; O2SAT 98
== END 2016-10-19 13:29 | disposition home or self-care (01) | DRG 386 ==
LOC: NEPE 14:47 → NEDA 19:30 → N07B 21:50
PROVIDERS: ADMIT Family Medicine; ATTEND Family Medicine
PROC: 0DBN8ZX Excision of Sigmoid Colon, Via Natural or Artificial Opening Endoscopic, Diagnostic (ICD-10-PCS; 2016-10-19)
PROC: 0DBP8ZX Excision of Rectum, Via Natural or Artificial Opening Endoscopic, Diagnostic (ICD-10-PCS; 2016-10-19)
PROC: 0DBM8ZX Excision of Descending Colon, Via Natural or Artificial Opening Endoscopic, Diagnostic (ICD-10-PCS; 2016-10-19)
PROC: 0DBK8ZX Excision of Ascending Colon, Via Natural or Artificial Opening Endoscopic, Diagnostic (ICD-10-PCS; principal; 2016-10-19 08:00)
DX: K51.511 Left sided colitis with rectal bleeding (principal); D62 Acute posthemorrhagic anemia; I10 Essential (primary) hypertension; K64.8 Other hemorrhoids; E86.0 Dehydration; N40.0 Benign prostatic hyperplasia without lower urinary tract symptoms; G47.00 Insomnia, unspecified; F32.9 Major depressive disorder, single episode, unspecified; F41.9 Anxiety disorder, unspecified
CPT/HCPCS: 74020; 74177; 80053; 83690; 85014; 85018; 85025; 85027; 85610; 85730; 86850; 86900; 86901; 87205; 87328; 87329; 87493; 87506; 88305; 96365; 96366; 96374; 96375; C9113; J0744; J2270; J2405; J7030; Q9967